=== PATIENT | male | born 1990 | race Caucasian/White ===

== ENCOUNTER 2023-06-17 23:12 | Emergency (ER) | payer BC, SELFPAY ==
[2023-06-17 23:17] VITALS: BP 160/100; PULSE 105; RESP 16; TEMP 36.9; O2SAT 98; BMI 33.0
--- NOTE | 2023-06-17 23:30 | ED_ITS ---
HPI - Skin/Abscess/Foreign Bdy General Chief complaint: Skin/Abscess/Foreign Body Stated complaint: INGROWN FINGER NAIL Time Seen by Provider: 06/17/23 23:17 Source: patient Mode of arrival: walk-in Limitations: no limitations History of Present Illness HPI narrative: 32-year-old male presents for pain and swelling to his left index finger. There has been no trauma. It is throbbing and the pain is moderate and continuous. It started within the last 2 days. He stopped taking his diabetes and hypertension medications about 3 years ago and does not go to doctors because he does not like them. Related Data Previous Rx's ?Medication ?Instructions ?Recorded cephalexin 500 mg capsule 500 mg PO QID 10 days #40 caps 06/18/23 Allergies Allergy/AdvReac Type Severity Reaction Status Date / Time No Known Drug Allergies Allergy Verified 06/17/23 23:25 Review of Systems ROS Narrative A ten point review of systems is negative except as noted above. Exam Narrative Exam Narrative: Nurses note and vital signs reviewed and patient is not hypoxic. General: The patient appears well and in no apparent distress. Patient is resting comfortably on cart. Skin: Warm, dry, no pallor noted. There is no rash noted. Head: Normocephalic, atraumatic Eye: Normal conjunctiva, no drainage Ears, Nose, Mouth, and Throat: oral mucosa is moist. Nares patent. Cardiovascular: Regular Rate and Rhythm Respiratory: Patient is in no distress, no accessory muscle use, lungs are clear to auscultation, no wheezing, rales or rhonchi Back: non-tender GI: Soft and nontender Musculoskeletal: Left index finger has a paronychia. No felon present. Neurological: Awake and alert Psychiatric: Cooperative Constitutional Vital Signs, click to edit/add: Last Vital Signs Temp 98.5 F 06/17/23 23:17 Pulse 105 H 06/17/23 23:17 Resp 16 06/17/23 23:17 BP 160/100 H 06/17/23 23:17 Pulse Ox 98 06/17/23 23:17 O2 Del Method Room Air 06/17/23 23:17 Course Vital Signs Vital signs: Vital Signs Temperature 98.5 F 06/17/23 23:17 Pulse Rate 105 H 06/17/23 23:17 Respiratory Rate 16 06/17/23 23:17 Blood Pressure 160/100 H 06/17/23 23:17 Pulse Oximetry 98 06/17/23 23:17 Oxygen Delivery Method Room Air 06/17/23 23:17 Temperature 98.5 F 06/17/23 23:17 Pulse Rate 105 H 06/17/23 23:17 Respiratory Rate 16 06/17/23 23:17 Blood Pressure 160/100 H 06/17/23 23:17 Pulse Oximetry 98 06/17/23 23:17 Oxygen Delivery Method Room Air 06/17/23 23:17 MDM - Skin/Abscess/Foreign Bdy MDM Narrative Medical decision making narrative: The following procedure was performed by me. Ethyl chloride and Betadine were applied to his left index finger distally and using a #11 blade the eponychium was raised and purulent material extracted. He tolerated the procedure well. No complications He was given a list of PCPs to follow-up with and was encouraged to follow-up with them because of his diabetes and hypertension. He seems quite reluctant to have any follow-up. The importance of follow-up and complications of untreated diabetes and hypertension were discussed with the patient. Differential Diagnosis Differential diagnosis: Likely abscess of skin or subcutaneous tissue and other (Paronychia, felon) Lab Data Attestation: I reviewed the patient's lab results. Labs: Lab Results 06/17/23 Range/Units 23:28 POC Glucose 377 H (74-106) mg/dL Discharge Plan Discharge Stand Alone Forms: Portal Instructions Chief Complaint: Skin/Abscess/Foreign Body Clinical Impression: Paronychia Patient Disposition: Home, Self-Care Time of Disposition Decision: 00:03 Condition: Good Mode of Transportation: Private Vehicle Prescriptions / Home Meds: New cephalexin 500 mg capsule 500 mg PO QID 10 Days Qty: 40 0RF Print Language: Arabic Instructions: Paronychia (ED) Additional Instructions: Soak in warm water for 10 minutes 4 times a day. List provided for PCP. Please follow-up with them regarding your diabetes and hypertension. Referrals: Physician,Non-Staff, MD [Primary Care Provider] - 1 week
[2023-06-17 23:31] LABS: Glucometer 377 mg/dL (74-106)
[2023-06-17] MEDS: ETHYL CHLORIDE 116 ML TOPICAL SPRAY BOTTLE 1 APPLIC TOPICAL (23:33)
== END 2023-06-18 00:13 | disposition home or self-care (01) ==
PROVIDERS: Emergency Provider Emergency Medicine
DX: L03.012 Cellulitis of left finger (principal)
CPT/HCPCS: 10060; 36415; 99283